=== PATIENT | male | born 1955 | race Caucasian/White ===

== ENCOUNTER 2025-05-10 13:47 | Inpatient (IN) | payer MEDICARE, BC, SELFPAY ==
[2025-05-10] VITALS (12 sets, daily range): BP systolic 122–205; BP diastolic 77–102
[2025-05-10 11:18] LABS: Hematocrit 48.5 % (39.0-52.0); Hemoglobin 15.6 g/dL (13.0-18.0); Mean Corp Hgb Conc. 32.2 g/dL (33.0-37.0); Mean Corpuscular Volume 90.0 fL (80.0-94.0); Nucleated Red Blood Cells % 0 % (-); Platelet Count 161 10^3/uL (130-400); Red Cell Dist. Width 13.2 % (11.5-14.5)
--- NOTE | 2025-05-10 11:21 | ED.GENMED ---
History of Present Illness
General
Chief Complaint: Dizziness
Source: patient and spouse
Exam Limitations: none
Time Seen by Provider: 05/10/25 10:46
History of Present Illness
History of Present Illness:
69-year-old male was in his normal state of health until early this morning. He woke up at baseline this morning. However at 530 this morning started having disequilibrium. Apparently could not get up from the floor in the bathroom. found
him on the floor awake at 10 AM. He also had slurred speech. Complaining of disequilibrium nausea. No unusual headache no other numbness tingling or weakness.
Past History
Past History
ED Past Medical History: CHF, HTN, Hypercholesterolemia, IDDM, Renal failure (does produce urine, states urine is clear, dialysis dependent), Other (Peripheral neuropathy) and Other (Cataracts, anemia)
ED Past Surgical History: Other (L arm surg, cataract surgery and left toe amputation)
Social History
Tobacco: Non-smoker
Alcohol: Occasional
Personal:
Living: with family
Employment: Employed
Family History
Family History: Diabetes and Hypertension
Review of Systems
Review of Systems
All Other Systems: Not applicable
Constitutional: Denies fever or chills
Respiratory: Reports no symptoms
Cardiac: Reports no symptoms
Phy Exam
Physical Exam
Physical Exam:
GENERAL: Eyes closed. Chronically ill-appearing. Normocephalic atraumatic.
EYE: Orbits normal. Extraocular muscles intact. No obvious nystagmus
NECK: Supple, no significant adenopathy.
ENT: Pharynx without erythema
CARDIAC: Regular rate and rhythm without any obvious murmurs.
LUNGS: Clear breath sounds,normal
ABDOMEN: Soft, without focal tenderness or distention
NEUROLOGICAL: Alert and oriented , cranial nerves II through XII intact. Speech normal. No obvious weakness.
SKIN: Warm and dry, no rash or lesion, no discoloration, skin intact.
MUSCULOSKELETAL: No edema,no deformity.Good color. Shunt left arm
PSYCH: Normal and appropriate interaction.
Course
Orders/Labs/Results
Orders:
Orders
05/10/25 10:43
Electrocardiogram (*1) Urgent
Reason for Study: Vertigo / Dizzy
05/10/25 10:44
EKG- Treatment ONCE
05/10/25 10:57
CT HEAD STROKE ALERT W/o Cont Urgent
Comment:
Reason For Exam: Sudden disequilibrium/slurred speech
05/10/25 11:00
Jackie Hugger [Jackie Hugger-Treatment] ONCE
Patient's goal temperature:: 97 F
Additional Instructions:: Temperature and skin assessment per unit protocol
05/10/25 11:05
Complete Blood Count/With Diff Urgent
Lactic Acid Q4H
Comment: CANCEL 2nd LACTIC ACID IF 1st LACTIC ACID IS LESS THAN 2
TSH Reflex To Free T4 Urgent
Blood Culture Q30M
LANI Source: Blood/Venous
Specimen Description:
Blood Culture Q30M
LANI Source: Blood/Venous
Specimen Description:
05/10/25 11:31
Comprehensive Metabolic Panel Urgent
Creatine Phosphokinase Urgent
Comment: ADD ON
Troponin I Urgent
05/10/25 11:56
Urinalysis Reflex To Culture Urgent
Date Specimen was Collected: 05/10/25
Time Specimen was Collected: 11:55
Urine Microscopic Reflex Cult Urgent
05/10/25 12:08
Bladder Scan- Treatment ONCE
05/10/25 12:30
Add On- LAB Urgent
Tests Added?: cpk
05/10/25 13:13
Admit/Transfer Patient As Directed
Co-Sign Provider:
Level of Care: Inpatient admission
Assign to:: IMU- Intermediate Care
Physician / Group: clare
Diagnosis: cva
Reason for Hospitalization: hypothermia
Expected length of stay greater than two midnights?: Yes
ELOS- Estimated Length of Stay in days: 2
I certify the patient meets the requirements for IP care: Yes
Code Status As Directed
Resuscitation Status: Full Code
PRN Pain Medication Management As Directed
May give lesser potent ordered pain med per pt: Yes
preference::
Protocol:: Medication orders for pain may be administered in a
manner that supports deferring to patient preference
when the pt is:
- Requesting an ordered lesser potent pain medication.
Least to most potent pain medications are defined
as: acetaminophen < NSAID < tramadol < opioids
(morphine, oxycodone, hydromorphone).
- Requesting a lesser dose of the same medication IF
ORDERED.
- Requesting a less intrusive route of administration
if both routes are prescribed by the provider (PO <
IV).
05/10/25 13:20
Ondansetron Injectable [Zofran] 4 mg IV NOW STA
CR Chest Portable - 1 View Urgent
Comment:
Reason For Exam: pneumonia
Reason Study Needs to be Portable: Unable to Transport
05/10/25 13:21
Ondansetron Injectable [Zofran] 4 mg .ROUTE .STK-MED ONE
05/10/25 Dinner
Regular
At Your Request: Full Participation
Does patient need a safe tray?: No
05/10/25 16:50
Dextrose 50%-Water [Dextrose 50% Syringe] 12.5 grams IV [id number] PRN
Glucagon [GlucaGen] 1 mg IM PRN PRN
Insulin Aspart Corrective Low [Novolog Flexpen-Low Resistance] See Protocol SC AC
05/10/25 16:50
Activity As Directed
Activity Level: As Tolerated
Bedside Glucose Monitoring As Directed
Frequency: AC&HS
Additional Instructions:: Change to q6h if pt on TPN, tube feeding or not eating
Pneumatic Compression Sleeves As Directed
Type: Knee high
Vital Signs As Directed
Frequency: Per unit guidelines
DX Deep Vein Thrombosis Video Routine
05/10/25 20:[address] [Myfortic Delayed Rel.] 540 mg PO BID
05/10/25 22:00
Pravastatin Sodium [Pravachol] 40 mg PO HS
Tacrolimus [Prograf] 0.5 mg PO HS
Tamsulosin [Flomax] 0.4 mg PO HS
05/11/25 06:00
Complete Blood Count/With Diff IN AM
Comprehensive Metabolic Panel IN AM
Glycohemoglobin (HgbA1c) IN AM
05/11/25 08:00
Tacrolimus [Prograf] 1 mg PO DAILY
05/13/25 08:00
Ergocalciferol [Drisdol (Vitamin D2)] 50,000 units PO SA
Abnormal Lab Results
05/10/25 05/10/25 05/10/25
11:05 11:31 11:56
WBC 12.1 H 10^3/uL
(4.8-10.8)
MCHC 32.2 L g/dL
(33.0-37.0)
MPV 10.9 H fL
(7.4-10.4)
Abs Immat Gran (auto) 0.1 H 10^3/uL
(0-0.05)
Absolute Neuts (auto) 10.8 H 10^3/uL
(1.4-6.5)
Absolute Lymphs (auto) 0.6 L 10^3/uL
(1.2-3.4)
Neutrophils % 89.2 H %
(42.2-75.2)
Lymphocytes % 5.0 L %
(20.5-51.1)
Glucose 244 H mg/dl
(70-99)
Urine Bacteria (Reflex) Few A
(Negative)
Urine Glucose 3+ A
(Negative)
Urine Albumin (Reflex) 2+ A
(Neg - Trace)
05/10/25 11:05
05/10/25 11:31
Vital Signs
Initial and Last Documented VS:
Initial Vital Signs
Pulse Ox
97
05/10/25 10:40
Last Documented Vital Signs
Temp Pulse Resp BP Pulse Ox
97.9 F 78 17 168/81 97
05/10/25 19:57 05/10/25 20:00 05/10/25 20:00 05/10/25 20:00 05/10/25 20:00
*Pulse Oximetry
SaO2: 96
Oxygen Mode of Delivery: Room air
Patient hypoxic: no
*EKG
Interpreted by ED Provider?: Yes
Interpretation: abnormal
Comparison EKG: changes noted
Heart Rate: 62
Rate: normal
Rhythm: sinus and PVC's
[place]: normal axis
Interval: normal interval
QRS Pattern: normal QRS
Ischemia: no ischemia
*Critical Care Note
Total Time (30-74mins, 75-104mins- exclusive of procedures): 45
Data Reviewed
Review of Other/Old Records Reveals: Labs, Records and Testing
Update Note
Update Note:
Patient has been rechecked multiple times.'s at times very agitated. Most recently he felt like he had to urinate. He did have 600 cc in. After urinating about 250 actually is much calmer. Mostly complaining of disequilibrium and nausea.
Clearly warrants admission. I do not think this is a primary cardiac issue or nephrology issue. Discussed with patient and transfer versus staying here. They are comfortable staying here. Nothing to support an acute kidney issue.
1325... Reevaluated by neurology. They feel he has a vestibular neuritis. Do not feel CTA is warranted. I did check with nephrology here to confirm if needed whether CT dye was okay which they said it was. We are also trying to contact his
drawer waxer at [facility].
1445.... Patient resting comfortably. Vital signs are stable. Blood pressure is improved. I did talk to patient's drawer waxer at [facility] who felt steroids were no problem at all.
ED Attending Note
-
Portions of this chart may have been created with voice recognition software.� Occasional wrong word or��sound alike� substitutions may have occurred due to the inherent limitations of voice recognition software.
Discharge Plan
Departure
Patient Disposition: Admit
Date of Disposition: 05/10/25
Time of Disposition: 12:30
Presentation/result/management discussed w/ accepting MD/DO: Neuro
Discharge Problem:
sudden dysequilibrium/vertigo, hypothermia, hx of renal transplant
Interventions
Interventions:
*Risk Screen - Suicide Last Done: 05/10/25 17:00
*General Assessment Last Done: 05/10/25 11:18
*Neglect/Abuse Screening Last Done: 05/10/25 11:18
*ED- Fall Risk Assessment Last Done: 05/10/25 11:18
*ED COVID-19 Vaccine History Last Done: 05/10/25 17:00
*Nursing Disposition Last Done: 05/10/25 16:57
ED- Neurological Assessment Last Done: 05/10/25 11:18
ED- Cardiac Assessment Last Done: 05/10/25 11:38
Discharge Date and Time
Discharge Date/Time: 05/10/25 16:58
[2025-05-10 12:08] LABS: ALT (SGPT) 19 U/L (0-50); AST (SGOT) 22 U/L (17-59); Albumin 4.2 g/dl (3.5-5.0); Alkaline Phosphatase 98 U/L (38-126); Blood Urea Nitrogen 20 mg/dl (9-20); Calcium 9.9 mg/dl (8.4-10.2); Carbon Dioxide 25 mmol/L (22-30); Chloride 105 mmol/L (98-107); Glucose 244 mg/dl (70-99); Potassium 3.9 mmol/L (3.5-5.1); Sodium 138 mmol/L (135-145); Total Protein 6.5 g/dl (6.3-8.2); eGFR > 60.00
[2025-05-10 12:08] LABS: Urine Character Clear (Clear)
[2025-05-10 12:13] LABS: Troponin I < 0.012 ng/ml
[2025-05-10 12:17] LABS: Urine Red Blood Cell 0-2 /HPF (0-2); Urine White Cell 0-2 /HPF (0-5)
--- NOTE | 2025-05-10 13:19 | HPS.HSE ---
Addendum entered and electronically signed by Tunde Garnett MD 05/10/25 15:05:
Neurology examined patient and notes vestibular neuritis of the left ear. Recommending prednisone 50 mg for 5 days. Will start as needed hydralazine for hypertensive urgency. CTA head and neck and MRI brain not necessary.
Patient continues to be hypothermic requiring Jackie hugger, although no clear explanation of this has been found so far.
Original Note:
Family Physician
-
Family Physician: Sami Birmingham
Chief Complaint
-
disequalibrium
History of Present Illness
69-year-old male past medical history of ESRD status post renal transplant,, type 2 diabetes, hypertension, hyperlipidemia, prostate cancer status post resection presenting with disequilibrium this morning at 5:30 AM. He woke up this morning
normally. At 530 started having disequilibrium with vertigo and could not get up from the floor in the bathroom. found him on the floor at 10 AM. He had slurred speech. He complained of nausea and some vomiting today. No headache or
numbness or tingling or focal weakness. No abdominal pain or cough or upper respiratory symptoms or urinary symptoms. He did not have any facial droop or focal neurological deficits or numbness or tingling.
No prior history of CVA.
He does not smoke or drink alcohol.
Medical History
Past Medical History
Past Medical History: Reports Other (ESRD status post renal transplant,, type 2 diabetes, hypertension, hyperlipidemia, prostate cancer status post resection)
Past Surgical History: Reports None
Social History
Tobacco: Non-smoker
Alcohol: None
Drug: None
Family History
Family History: Not pertinent
Allergies / Home Medications
Allergies reflects when Allergies were last updated in [facility].
Home Medications with original date entered in [facility]
Allergy/Medication List:
Allergies
Allergy/AdvReac Type Severity Reaction Status Date / Time
Penicillins Allergy Unknown Verified 05/10/25 11:26
Home Medications
ergocalciferol (vitamin D2) 1,250 mcg (50,000 unit) capsule 1,250 mcg PO SA Supplement 05/10/25
insulin aspart U-100 100 unit/mL (3 mL) subcutaneous pen (Novolog FlexPen U-100 Insulin aspart) 2 - 6 sliding scale dose SC DIRECTED Diabetes 05/10/25
insulin degludec 100 unit/mL (3 mL) subcutaneous pen (Tresiba FlexTouch U-100 insulin) 14 unit SC HS Diabetes 05/10/25
mycophenolate sodium 180 mg tablet,delayed release 540 mg PO BID Transplant 05/10/25
pravastatin 40 mg tablet 40 mg PO HS High Cholesterol 05/10/25
prednisone 5 mg tablet 5 mg PO DAILY Transplant 05/10/25
tacrolimus 0.5 mg capsule, immediate-release 0.5 mg PO HS 05/10/25
tacrolimus 0.5 mg capsule, immediate-release 1 mg PO DAILY Transplant 05/10/25
tamsulosin 0.4 mg capsule 0.4 mg PO HS Urinary Issue 05/10/25
Review of Systems
-
History Source: Patient
A 12 point ROS was completed and negative except as noted: Yes
Constitutional: Reports No Symptoms
EENT: Reports No Symptoms
Respiratory: Reports No Symptoms
Cardiac: Reports No Symptoms
Abdomen/GI: Reports No Symptoms
: Reports No Symptoms
Musculoskeletal: Reports No Symptoms
Skin: Reports No Symptoms
Neurological: Reports No Symptoms
Endocrine: Reports No Symptoms
Hematologic/Lymphatic: Reports No Symptoms
Psych: Reports No Symptoms
Physical Exam
Vital Signs
Vital Signs
Temp Pulse Resp BP Pulse Ox
94.9 F L 63 20 181/93 96
05/10/25 12:23 05/10/25 11:30 05/10/25 11:30 05/10/25 11:23 05/10/25 11:38
Physical Exam
General: Well Developed, Well Nourished and No Apparent Distress
HEENT: NormoCephalic, Moist mucous membranes and Atraumatic
Respiratory: Clear
Cardiac: S1/S2 and Regular Rhythm; No Murmur or Rub
GI: Soft, Non Tender, Non Distended and Normal Bowel Sounds; No Organomegaly
Rectal: Deferred by Provider
Musculoskeletal: No Clubbing, No Cyanosis and No Edema
Skin: No Rash
Neuro: Nonfocal/grossly intact
Laboratory Results
-
05/10/25 11:05
05/10/25 11:31
Laboratory Results
Lactic Acid 1.0 mmol/L (0.7-2.0) 05/10/25 11:05
Total Bilirubin 1.1 mg/dl (0.2-1.3) 05/10/25 11:31
AST 22 U/L (17-59) 05/10/25 11:31
ALT 19 U/L (0-50) 05/10/25 11:31
Alkaline Phosphatase 98 U/L (38-126) 05/10/25 11:31
Troponin I < 0.012 ng/ml 05/10/25 11:31
Data Reviewed
-
Lab Data: Labs Reviewed by me
Old Records: Reviewed
Impression/Plan
-
IMPRESSION:
PLAN:
# Acute disequilibrium concerning for brainstem process/CVA also causing hypothermia
- CT head shows no acute abnormality
- Check MRI brain
- Neurology consulted
# Hypertensive urgency
-Permissive hypertension for now
- As needed hydralazine for blood pressure greater than 220
# Hypothermia unclear etiology possibly brainstem process also causing disequilibrium
-Leukocytosis on labs
- TSH of 1.16
- Urinalysis unremarkable
- Check chest x-ray
- Blood cultures pending
- No clear signs of infection, hold off antibiotics
- Doubt adrenal insufficiency as hypertensive
ESRD s/p renal transplant
-Renal function normal however cautious to perform CTA given renal transplant
- Continue mycophenolate, tacrolimus, prednisone
Type 2 diabetes
- Continue Tresiba 14 units
- Insulin sliding scale
Essential hypertension
Hyperlipidemia
- Continue statin
Prostate cancer s/p resection
- Continue tamsulosin
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
Full code
DVT prophylaxis�SCDs
Regular diet
[2025-05-10] MEDS: ZOFRAN 4 MG IV ×2 (13:22→20:28)
[2025-05-10 17:33] LABS: Glucose - Point of Care 211 mg/dl (70-99)
[2025-05-10] MEDS: APRESOLINE 5 MG IV (17:46)
[2025-05-10] MEDS: DELTASONE 50 MG PO (17:46)
[2025-05-10] MEDS: NOVOLOG FLEXPEN-LOW RESISTANCE 2 UNITS SC (17:47)
[2025-05-10] MEDS: MYFORTIC DELAYED REL. 540 MG PO (20:28)
--- NOTE | 2025-05-10 21:13 | CON.NEURO ---
Neuro Assessment/Plan
Assessment
acute vestibular neuritis left side. slow drift to the left representing gain of function, and the right nystagmus representing a cortical correction the brain responding appropriately
no loss of function to suggest stroke
no further imaging required
prednisone 50 mg x5 days recommended
would admit for PT eval and observe if anything comes of his hypothermia
Consultation
Order
Date of Consultation: 05/10/25
Requesting Provider: Benjamín Marcus
Reason for Consult: stroke alert
Subjective/Objective
Subjective Data
Date of Service: May 10, 2025
seen during stroke alert this morning, late note.
69-year-old male was in his normal state of health until early this morning. He woke up at baseline this morning. However at 530 this morning started having disequilibrium. Apparently could not get up from the floor in the bathroom. found
him on the floor awake at 10 AM. He also had slurred speech. Complaining of disequilibrium nausea. No unusual headache no other numbness tingling or weakness.
Objective Data
Vital Signs
Temp Pulse Resp BP Pulse Ox
36.6 C 78 17 168/81 97
05/10/25 19:57 05/10/25 20:00 05/10/25 20:00 05/10/25 20:00 05/10/25 21:07
Lab Results
05/10/25 11:05
05/10/25 11:31
Sodium 138 mmol/L (135-145) 05/10/25 11:31
Potassium 3.9 mmol/L (3.5-5.1) 05/10/25 11:31
BUN 20 mg/dl (9-20) 05/10/25 11:31
Glucose 244 mg/dl (70-99) H 05/10/25 11:31
Calcium 9.9 mg/dl (8.4-10.2) 05/10/25 11:31
Patient Allergies
Penicillins Allergy (Verified 05/10/25 11:26)
Unknown
CVA Assessment
Onset of Stroke Symptoms
Date of onset of symptoms: 05/10/25
Time of onset of symptoms: 05:30
NIH Stroke Score
Level of Consciousness: 0 - Alert
LOC Questions: 0-Answers both correctly
LOC Commands: 0-Performs both correctly
Best Horizontal Gaze: 0-Normal
Visual Joyner: 0=Normal, no visual loss
Facial Palsy: 0=Normal, symmetrical
Motor - Right Arm: 0=No drift 10 seconds
Motor - Left Arm: 0=No drift 10 seconds
Motor - Right Le-No drift 5 seconds
Motor - Left Le-No drift 5 seconds
Limb Ataxia: 0-Absent
Sensation: 0-Normal
Best Language: 0-No aphasia
Dysarthria: 0-Normal
Extinction and Inattention: 0-No abnormality
NIH Total Score:: 0
Tenecteplase Contraindications
Reasons for NON-Tx with Thrombolytics ABSOLUTE Exclusions: Time-out of window
Physical Exam
-
NIHSS of 0
constant right beating nystagmus
Medications
-
Active Medications
Generic Name Dose Route Start Last Admin
Trade Name Freq PRN Reason Stop Dose Admin
Dextrose 12.5 grams 05/10/25 16:50
Dextrose 50% (0.5 Grams/Ml) 50 Ml Syringe IV 06/07/25 16:49
[id number] PRN
hypoglycemia
Protocol
Ergocalciferol 50,000 units 05/13/25 08:00
Ergocalciferol (Vitamin D-2) 67856 Units Capsule PO 06/10/25 07:59
SA DIDI
Glucagon 1 mg 05/10/25 16:50
Glucagon 1 Mg Vial IM 06/07/25 16:49
PRN PRN
hypoglycemia
Protocol
Hydralazine HCl 5 mg 05/10/25 15:07 05/10/25 17:46
Hydralazine 20 Mg/Ml Vial IV 06/07/25 15:06 5 mg
Q6HPRN PRN Administration
SBP>170
Insulin Glargine 14 units/ 0.14 mls @ 0 mls/hr 05/10/25 22:00
Device SC 06/07/25 21:59
HS DIDI
As Directed
Insulin Aspart 0 units 05/10/25 16:50 05/10/25 17:47
Insulin Aspart Low Resistance 300 Units/3 Ml Pen.Injctr SC 06/07/25 16:49 2 units
AC DIDI Administration
Protocol
Mycophenolate Sodium 540 mg 05/10/25 20:00 05/10/25 20:28
Mycophenolic Acid [address] Tablet (Non Form) PO 540 mg
BID DIDI Administration
Pravastatin Sodium 40 mg 05/10/25 22:00
Pravastatin 40 Mg Tablet PO 06/07/25 21:59
HS DIDI
Prednisone 50 mg 05/10/25 16:00 05/10/25 17:46
Prednisone 50 Mg Tablet PO 05/14/25 08:01 50 mg
DAILY DIDI Administration
Sodium Chloride 0 flush 05/10/25 17:00
Sodium Chloride 0.9% (Flush) Syringe IV 06/07/25 16:59
PER PROTOCOL DIDI
Tacrolimus 1 mg 05/11/25 08:00
Tacrolimus 1 Mg Capsule PO 06/08/25 07:59
DAILY DIDI
Tacrolimus 0.5 mg 05/10/25 22:00
Tacrolimus 0.5 Mg Capsule PO 06/07/25 21:59
HS DIDI
Tamsulosin HCl 0.4 mg 05/10/25 22:00
Tamsulosin 0.4 Mg Capsule PO 06/07/25 21:59
HS DIDI
Home Medications
�Medication �Instructions �Recorded
ergocalciferol (vitamin D2) 1,250 1,250 mcg PO SA Supplement 05/10/25
mcg (50,000 unit) capsule
insulin aspart U-100 100 unit/mL 2 - 6 sliding scale dose SC 05/10/25
(3 mL) subcutaneous pen (Novolog DIRECTED Diabetes
FlexPen U-100 Insulin aspart)
insulin degludec 100 unit/mL (3 14 unit SC HS Diabetes 05/10/25
mL) subcutaneous pen (Tresiba
FlexTouch U-100 insulin)
mycophenolate sodium 180 mg 540 mg PO BID Transplant 05/10/25
tablet,delayed release
pravastatin 40 mg tablet 40 mg PO HS High Cholesterol 05/10/25
prednisone 5 mg tablet 5 mg PO DAILY Transplant 05/10/25
tacrolimus 0.5 mg capsule, 0.5 mg PO HS 05/10/25
immediate-release
tacrolimus 0.5 mg capsule, 1 mg PO DAILY Transplant 05/10/25
immediate-release
tamsulosin 0.4 mg capsule 0.4 mg PO HS Urinary Issue 05/10/25
[2025-05-10] MEDS: PRAVACHOL 40 MG PO (21:57)
[2025-05-10] MEDS: PROGRAF 0.5 MG PO (21:57)
[2025-05-10] MEDS: FLOMAX 0.4 MG PO (21:57)
[2025-05-10] MEDS: LANTUS 0.14 UNITS SC (21:58)
[2025-05-10 22:11] LABS: Glucose - Point of Care 210 mg/dl (70-99)
--- NOTE | 2025-05-10 22:13 | PTCARENOTE ---
Caring for pt overnight. 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 Continues to feel dizziness.
Pt complaining of R arm weakness/ataxia. Completed NIH with a score of 2. Pt having slight dysarthria & right arm ataxia. R hand grasp is weaker than L. Pt states it feels like something is wrong with his R arm and these symptoms just started when
all his other symptoms arised. Pt feels he cannot hold things with his R hand and its unsteady. PERRLA. BPs running high, will monitor, prn hydralazine. NSR, on RA. Will continue to monitor.
[2025-05-11] VITALS (12 sets, daily range): BP systolic 106–174; BP diastolic 67–89
[2025-05-11] MEDS: ZOFRAN 4 MG IV (04:12)
[2025-05-11 04:27] LABS: Hematocrit 49.6 % (39.0-52.0); Hemoglobin 16.6 g/dL (13.0-18.0); Mean Corp Hgb Conc. 33.5 g/dL (33.0-37.0); Mean Corpuscular Volume 88.3 fL (80.0-94.0); Nucleated Red Blood Cells % 0 % (-); Platelet Count 202 10^3/uL (130-400); Red Cell Dist. Width 13.2 % (11.5-14.5)
[2025-05-11 04:42] LABS: ALT (SGPT) 20 U/L (0-50); AST (SGOT) 20 U/L (17-59); Albumin 4.1 g/dl (3.5-5.0); Alkaline Phosphatase 90 U/L (38-126); Blood Urea Nitrogen 25 mg/dl (9-20); Calcium 10.3 mg/dl (8.4-10.2); Carbon Dioxide 24 mmol/L (22-30); Chloride 106 mmol/L (98-107); Glucose 226 mg/dl (70-99); Potassium 4.5 mmol/L (3.5-5.1); Sodium 138 mmol/L (135-145); Total Protein 6.6 g/dl (6.3-8.2); eGFR > 60.00
[2025-05-11] MEDS: MYFORTIC DELAYED REL. 540 MG PO ×2 (07:05→20:29)
[2025-05-11] MEDS: DELTASONE 50 MG PO (07:06)
[2025-05-11] MEDS: PROGRAF 1 MG PO (07:06)
--- NOTE | 2025-05-11 07:19 | W.PN.HOSP.TC ---
Today's Communication/Plan
-
See plan
Assessment / Plan
Assessment / Plan
Physical Exam
General: Well Developed, Well Nourished and No Apparent Distress
HEENT: NormoCephalic, Moist mucous membranes and Atraumatic
Respiratory: Clear
Cardiac: S1/S2 and Regular Rhythm; No Murmur or Rub
GI: Soft, Non Tender, Non Distended and Normal Bowel Sounds; No Organomegaly
Rectal: Deferred by Provider
Musculoskeletal: No Clubbing, No Cyanosis and No Edema
Skin: No Rash
Neuro: Nonfocal/grossly intact
Assessment/Plan
69-year-old male past medical history of ESRD status post renal transplant, type 2 diabetes mellitus, hypertension, hyperlipidemia, prostate cancer status post resection presented with disequilibrium on 05/10/25 morning. He woke up normally but
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 found patient on the floor later in the morning; he had slurred speech. He complained of nausea and some vomiting
on 05/10/25. No headache or numbness or tingling or focal weakness. No abdominal pain or cough or upper respiratory symptoms or urinary symptoms. He did not have any facial droop or focal neurological deficits or numbness or tingling. No prior
history of CVA. He does not smoke or drink alcohol.
CTA head and neck and MRI brain not necessary.
Patient continues to be hypothermic requiring Jackie hugger, although no clear explanation of this has been found so far.
# Acute disequilibrium, speech difficulty concerning for brainstem process/CVA -- suspected vestibular neuritis
- CT head shows no acute abnormality
- Neurology consulted -- they mentioned neuroimaging is unnecessary
- Neurology examined patient and notes vestibular neuritis of the left ear. Recommending prednisone 50 mg for 5 days.
#Hematemesis reported overnight 05/10/25 to 05/11/25
-Start Protonix IV 40 mg BID
-IV fluids
-Consult GI
# Hypertensive urgency - RESOLVED
- Permissive hypertension for now
- As needed hydralazine
# Hypothermia unclear etiology
- Leukocytosis on labs
- No hypoglycemia
- TSH of 1.16
- Urinalysis unremarkable
- Chest x-ray with no acute changes
- Blood cultures with no growth to date
- No clear signs of infection, hold off antibiotics
- Doubt adrenal insufficiency as patient was hypertensive; and sodium and potassium are normal
#History of ESRD s/p renal transplant (per patient, he no longer gets dialysis)
- Renal function normal however cautious to perform CTA given renal transplant
- Continue mycophenolate, tacrolimus, prednisone
Type 2 diabetes mellitus
- Continue Tresiba 14 units
- Insulin sliding scale
Essential hypertension
Hyperlipidemia
- Continue statin
Prostate cancer s/p resection
- Continue tamsulosin
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
Full code
DVT prophylaxis�SCDs
Regular diet
Anticipated Discharge: 24 - 48 hours
Subjective/Interval History
-
Date of Service: May 11, 2025
Patient was seen and examined. He had nausea and occasional vomiting.
Objective Data
-
Labs:
Laboratory Results
05/11/25
04:02
WBC 10.9 H
Hgb 16.6
Hct 49.6
Plt Count 202 D
Sodium 138
Potassium 4.5
Chloride 106
Carbon Dioxide 24
BUN 25 H
Creatinine 1.1
Glucose 226 H
Calcium 10.3 H
Total Bilirubin 1.4 H
AST 20
ALT 20
Alkaline Phosphatase 90
Vital Signs:
Vital Signs
Temp Pulse Resp BP Pulse Ox
97.7 F 79 18 106/67 96
05/11/25 04:00 05/11/25 06:00 05/11/25 06:00 05/11/25 06:00 05/11/25 06:00
I&O
05/10/25 05/11/25 05/12/25
06:59 06:59 06:59
Output Total 650 / 650
Balance -650 / -650
[2025-05-11] MEDS: NSS 1000 IV (07:49)
[2025-05-11 07:55] LABS: Glycohemoglobin (HgbA1c) 8.0 % (4.0-5.6)
[2025-05-11] MEDS: NOVOLOG FLEXPEN-LOW RESISTANCE 2 UNITS SC (07:57)
[2025-05-11 08:08] LABS: Glucose - Point of Care 229 mg/dl (70-99)
--- NOTE | 2025-05-11 08:17 | PTCARENOTE ---
Patient received this am from solar field installation crew member RN. Patient AAOx3, + emesis-coffee grains black/brown, patient unable to take morning meds. Provider notified. IV fluids obtained. Protonix IV ordered. GI consult placed. Patient reports being on steroids
for 5+ years for kidney transplant. VS within normal limits. Patient bedrest at this time due to vestibular issues. Placed on clear liquid diet.
--- NOTE | 2025-05-11 09:32 | CON.GI ---
Consultation
-
Date/Time Consultation Requested: 05/11/25
Date/Time Consultation Performed: 05/11/25
Reason for Consultation: Coffee-ground emesis
Medical History
Chief Complaint / HPI
Chief Complaint: coffee-ground emesis
History of Present Illness:
Benjamín is a 69-year-old male with past medical history of ESRD status post renal transplant performed at [facility], type 2 diabetes, hypertension, hyperlipidemia, prostate cancer status post resection who presented to [facility]
yesterday morning for feeling of disequilibrium upon waking up, he was subsequently found on the floor by his and had slurred speech with complaints of nausea and vomiting. He was admitted as a stroke alert, seen by neurology who felt that his
symptoms were more consistent with acute vestibular neuritis of his left side, NIH stroke scale of 0. CT head negative, MRI pending. Additionally, was hypertensive and hypothermic, lowest temperature recorded at 93.6 which improved with Jackie
hugger. Blood cultures pending. He was now maintaining normal temperatures. He was started on prednisone 50 mg for 5 days. GI was consulted for multiple episodes of bloody emesis. It was described by both nurse and patient as black and brown
emesis, appearance of coffee grounds without any bright red blood or blood clots present. Patient was started on PPI IV every 12 hours. He denies any recent NSAID use. He did receive his first dose of prednisone yesterday. No prior EGD. Denies
family history of GI malignancy.
Past Medical History
Past Medical History: HTN, Hypercholesterolemia, NIDDM and Renal Failure
Past Surgical History: Other (Renal transplant)
Social History
Tobacco: Non-Smoker
Alcohol: None
Drug: None
Family History
Family History: Reviewed & Not Pertinent
Allergies / Home Medications
Allergy/AdvReac Type Severity Reaction Status Date / Time
Penicillins Allergy Unknown Verified 05/10/25 11:26
�Medication �Instructions �Recorded
ergocalciferol (vitamin D2) 1,250 1,250 mcg PO SA Supplement 05/10/25
mcg (50,000 unit) capsule
insulin aspart U-100 100 unit/mL 2 - 6 sliding scale dose SC 05/10/25
(3 mL) subcutaneous pen (Novolog DIRECTED Diabetes
FlexPen U-100 Insulin aspart)
insulin degludec 100 unit/mL (3 14 unit SC HS Diabetes 05/10/25
mL) subcutaneous pen (Tresiba
FlexTouch U-100 insulin)
mycophenolate sodium 180 mg 540 mg PO BID Transplant 05/10/25
tablet,delayed release
pravastatin 40 mg tablet 40 mg PO HS High Cholesterol 05/10/25
prednisone 5 mg tablet 5 mg PO DAILY Transplant 05/10/25
tacrolimus 0.5 mg capsule, 0.5 mg PO HS 05/10/25
immediate-release
tacrolimus 0.5 mg capsule, 1 mg PO DAILY Transplant 05/10/25
immediate-release
tamsulosin 0.4 mg capsule 0.4 mg PO HS Urinary Issue 05/10/25
Review of Systems
-
All other systems: A 12 pt ROS was Negative except as stated above in HPI
Vital Signs
Temp Pulse Resp BP Pulse Ox
98.1 F 79 18 106/67 96
05/11/25 07:05 05/11/25 06:00 05/11/25 06:00 05/11/25 06:00 05/11/25 06:00
Physical Exam
Exam
GENERAL: In no acute distress, appears comfortable
ABDOMEN: +BS; soft, non-tender and non-distended; no rebound or guarding
RECTAL: +light brown stool
Results
WBC 10.9 10^3/uL (4.8-10.8) H 05/11/25 04:02
Hgb 16.6 g/dL (13.0-18.0) 05/11/25 04:02
Hct 49.6 % (39.0-52.0) 05/11/25 04:02
MCV 88.3 fL (80.0-94.0) 05/11/25 04:02
Plt Count 202 10^3/uL (130-400) D 05/11/25 04:02
Absolute Neuts (auto) 10.0 10^3/uL (1.4-6.5) H 05/11/25 04:02
Sodium 138 mmol/L (135-145) 05/11/25 04:02
Potassium 4.5 mmol/L (3.5-5.1) 05/11/25 04:02
Chloride 106 mmol/L (98-107) 05/11/25 04:02
Carbon Dioxide 24 mmol/L (22-30) 05/11/25 04:02
BUN 25 mg/dl (9-20) H 05/11/25 04:02
Creatinine 1.1 mg/dL (0.7-1.3) 05/11/25 04:02
Calcium 10.3 mg/dl (8.4-10.2) H 05/11/25 04:02
Total Bilirubin 1.4 mg/dl (0.2-1.3) H 05/11/25 04:02
AST 20 U/L (17-59) 05/11/25 04:02
ALT 20 U/L (0-50) 05/11/25 04:02
Alkaline Phosphatase 90 U/L (38-126) 05/11/25 04:02
Diagnostic Image Results:
Prior GI Procedures:
EGD:
Colonoscopy:
Assessment / Plan
-
69 y.o. male with pmhx ESRD s/p transplant on immunosuppression, HTN, HLD, DM2 admitted for rule out stroke found to be hypertensive and hypothermic, given a diagnosis of acute vestibular neuritis and started on prednisone w/ course c/b
coffee-ground emesis.
#Coffee-ground emesis w/ c/f UGIB-- ddx erosive esophagitis/gastritis vs. PUD vs. vicki ly tear vs. ischemic vs. AVM vs. diuelafoy vs. less likely variceal or malignancy
-unclear if actually had coffee grounds or if possibly medication or old food in emesis, in the setting of nausea and retching
-light brown stool on rectal; hemoglobin 16.6 this morning, likely hemoconcentrated, BUN increased from 20--> 25, suspect some dehydration
-Recommend IV PPI q12 hr
-NPO, antiemetics; okay to advance to CLD if patient able to tolerate
-2 large bore peripheral gauge IVs
-repeat early afternoon CMP and CBC
-given concern for possible stroke, would not recommend pursuing endoscopic procedure unless absolutely necessary, which I explained to the patient and he expressed understanding
Data Reviewed
-
Old Records: Reviewed
-
-
Thank you for consultation and allowing me to participate in the patient's care. Please call the english as a second language instructor GI physician during the after hours with any questions or concerns.
[2025-05-11] MEDS: NSS (PRESERVATIVE FREE) 10 ML IV ×2 (10:32→20:28)
[2025-05-11] MEDS: PROTONIX IV 40 MG IV ×2 (10:32→20:28)
[2025-05-11] MEDS: NOVOLOG FLEXPEN-LOW RESISTANCE 1 UNITS SC ×2 (12:53→17:08)
[2025-05-11] MEDS: NOVOLOG FLEXPEN 2 UNITS SC ×2 (12:53→17:09)
[2025-05-11 13:01] LABS: Hematocrit 48.1 % (39.0-52.0); Hemoglobin 15.8 g/dL (13.0-18.0); Mean Corp Hgb Conc. 32.8 g/dL (33.0-37.0); Mean Corpuscular Volume 88.7 fL (80.0-94.0); Nucleated Red Blood Cells % 0 % (-); Platelet Count 198 10^3/uL (130-400); Red Cell Dist. Width 13.5 % (11.5-14.5)
[2025-05-11 13:08] LABS: Glucose - Point of Care 175 mg/dl (70-99)
[2025-05-11 13:32] LABS: ALT (SGPT) 17 U/L (0-50); Albumin 3.6 g/dl (3.5-5.0); Alkaline Phosphatase 76 U/L (38-126); Blood Urea Nitrogen 33 mg/dl (9-20); Calcium 9.8 mg/dl (8.4-10.2); Carbon Dioxide 25 mmol/L (22-30); Chloride 106 mmol/L (98-107); Glucose 199 mg/dl (70-99); Potassium 4.5 mmol/L (3.5-5.1); Sodium 137 mmol/L (135-145); Total Protein 5.9 g/dl (6.3-8.2); eGFR 55.09
[2025-05-11 13:44] LABS: AST (SGOT) 18 U/L (17-59)
--- NOTE | 2025-05-11 16:05 | CM ---
Patient with Hx ESRD s/p renal transplant with Dx Acute disequilibrium with concern for stroke, coffee ground emesis, Hypertensive urgency. Room air. Receiving SC Insulin, IVF. Per nurse; A/O, weak right hand grasp, assist of 1/bedrest.
Met with patient who resides with his in a 1 story houe with 3-4 outside steps.
The patient was independent in ADLs and ambulation.
He was retired, active and driving.
The patient reports weakness & a movement issue with right arm, saying his right arm will not move where he wants it to. Patient is unsure if he can walk at present as he has not been allowed OOB ---> message to Dr Lau with request for PT/OT
Evals.
DME - [facility]
VN - prior [facility]
SNF - none
PCP - Sami [place]
Pharmacy - [facility] [address], [place]
Plan follow up after seen by PT/OT.
[2025-05-11 17:22] LABS: Glucose - Point of Care 189 mg/dl (70-99)
[2025-05-11] MEDS: HEPARIN 5000 UNITS SC (20:28)
[2025-05-11] MEDS: PRAVACHOL 40 MG PO (22:10)
[2025-05-11] MEDS: PROGRAF 0.5 MG PO (22:10)
[2025-05-11] MEDS: FLOMAX 0.4 MG PO (22:10)
[2025-05-11] MEDS: LANTUS 0.14 UNITS SC (22:10)
[2025-05-11 22:15] LABS: Glucose - Point of Care 263 mg/dl (70-99)
[2025-05-12] VITALS (17 sets, daily range): BP systolic 84–158; BP diastolic 55–93; PULSE 81
[2025-05-12 05:37] LABS: Hematocrit 50.4 % (39.0-52.0); Hemoglobin 16.2 g/dL (13.0-18.0); Mean Corp Hgb Conc. 32.1 g/dL (33.0-37.0); Mean Corpuscular Volume 89.5 fL (80.0-94.0); Platelet Count 193 10^3/uL (130-400); Red Cell Dist. Width 13.3 % (11.5-14.5)
[2025-05-12 06:01] LABS: Blood Urea Nitrogen 33 mg/dl (9-20); Calcium 9.4 mg/dl (8.4-10.2); Carbon Dioxide 24 mmol/L (22-30); Chloride 106 mmol/L (98-107); Glucose 212 mg/dl (70-99); Magnesium 2.0 mg/dl (1.6-2.3); Potassium 4.8 mmol/L (3.5-5.1); Sodium 135 mmol/L (135-145); eGFR > 60.00
[2025-05-12 07:18] LABS: Glucose - Point of Care 171 mg/dl (70-99)
--- NOTE | 2025-05-12 08:14 | W.PN.GI.CBS2 ---
Today's Communication / Plan
-
Transition to PO PPI. Advance to full diet. GI will sign off, f/u as outpatient.
Assessment / Plan
-
69 y.o. male with pmhx ESRD s/p transplant on immunosuppression, HTN, HLD, DM2 admitted for rule out stroke found to be hypertensive and hypothermic, given a diagnosis of acute vestibular neuritis and started on prednisone w/ course c/b
coffee-ground emesis.
#Coffee-ground emesis w/ c/f UGIB-- ddx erosive esophagitis/gastritis vs. PUD vs. vicki ly tear vs. ischemic vs. AVM vs. diuelafoy vs. less likely variceal or malignancy
-unclear if actually had coffee grounds or if possibly medication or old food in emesis, in the setting of nausea and retching
-light brown stool on recta
-hemoglobin remains stable
-currently on PPI IV Q12 hr --> transition to pantoprazole 40mg once daily x4 weeks
-okay to advance to full diet
-outpatient follow-up with GI, can discuss outpatient EGD at that time, no signs of active or event recent bleeding
GI will sign off, please call with questions.
Subjective
Subjective
Date of Service: May 12, 2025
Patient seen in follow-up. No overnight events. Hemoglobin stable. No nausea or vomiting in last 24 hours, reports brown stool yesterday. Tolerating CLD.
Objective
Data Reviewed
Laboratory Data:
Laboratory Results
05/12/25 05:05
05/12/25 05:05
Laboratory Results
Magnesium 2.0 mg/dl (1.6-2.3) 05/12/25 05:05
Total Bilirubin 1.2 mg/dl (0.2-1.3) 05/11/25 12:45
AST 18 U/L (17-59) 05/11/25 12:45
ALT 17 U/L (0-50) 05/11/25 12:45
Alkaline Phosphatase 76 U/L (38-126) 05/11/25 12:45
Vital Signs and I&O:
Vital Signs
Temp Pulse Resp BP Pulse Ox
97.9 F 63 17 140/75 94
05/12/25 07:27 05/12/25 00:00 05/12/25 00:00 05/12/25 00:00 05/11/25 10:00
I&O
05/11/25 05/12/25 05/13/25
06:59 06:59 06:59
Output Total 650 / 650 750 / 750
Balance -650 / -650 -750 / -750
Physical Exam
Physical Exam
GENERAL: In no acute distress, appears comfortable
ABDOMEN: +BS; soft, non-tender and non-distended; no rebound or guarding
[2025-05-12] MEDS: PROGRAF 1 MG PO (08:33)
[2025-05-12] MEDS: DELTASONE 50 MG PO (08:33)
[2025-05-12] MEDS: MYFORTIC DELAYED REL. 540 MG PO ×2 (08:33→20:39)
[2025-05-12] MEDS: HEPARIN 5000 UNITS SC ×2 (08:34→20:39)
[2025-05-12] MEDS: NSS (PRESERVATIVE FREE) 10 ML IV (08:34)
[2025-05-12] MEDS: PROTONIX IV 40 MG IV (08:34)
[2025-05-12] MEDS: NOVOLOG FLEXPEN-LOW RESISTANCE 1 UNITS SC ×2 (08:35→12:17)
[2025-05-12] MEDS: NOVOLOG FLEXPEN 2 UNITS SC ×3 (08:36→17:09)
[2025-05-12 11:37] LABS: Glucose - Point of Care 188 mg/dl (70-99)
--- NOTE | 2025-05-12 16:09 | W.PN.HOSP.TC ---
Today's Communication/Plan
-
PT/OT
Advance Diet
Transition to PO PPI
Transfer to telemetry
Assessment / Plan
Assessment / Plan
Physical Exam
General: Well Developed, Well Nourished and No Apparent Distress
HEENT: NormoCephalic, Moist mucous membranes and Atraumatic
Respiratory: Clear to Auscultation Bilaterally
Cardiac: S1/S2 and Regular Rhythm
GI: Soft, Non Tender, Non Distended and Normal Bowel Sounds
Musculoskeletal: No Cyanosis and No Edema
Skin: Warm. Dry.
Neuro: Nonfocal/grossly intact
Assessment/Plan
69-year-old male past medical history of ESRD status post renal transplant, type 2 diabetes mellitus, hypertension, hyperlipidemia, prostate cancer status post resection presented with disequilibrium on 05/10/25 morning. He woke up normally but
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 found patient on the floor later in the morning; he had slurred speech. He complained of nausea and some vomiting
on 05/10/25. No headache or numbness or tingling or focal weakness. No abdominal pain or cough or upper respiratory symptoms or urinary symptoms. He did not have any facial droop or focal neurological deficits or numbness or tingling. No prior
history of CVA. He does not smoke or drink alcohol.
CTA head and neck and MRI brain not necessary.
Patient continued to be hypothermic requiring Jackie hugger, although no clear explanation of this has been found so far.
# Acute disequilibrium, speech difficulty concerning for brainstem process/CVA -- suspected vestibular neuritis
- CT head shows no acute abnormality
- Neurology consulted -- they mentioned neuroimaging is unnecessary
- Neurology examined patient and notes vestibular neuritis of the left ear. Recommending prednisone 50 mg for 5 days.
#Hematemesis reported overnight 05/10/25 to 05/11/25
-Protonix IV 40 mg BID transitioned to PO Protonix
-IV fluids
-Appreciate GI
# Hypertensive urgency - RESOLVED
- RESOLVED
- As needed hydralazine
# Hypothermia unclear etiology
- Leukocytosis on labs
- No hypoglycemia
- TSH of 1.16
- Urinalysis unremarkable
- Chest x-ray with no acute changes
- Blood cultures with no growth to date
- No clear signs of infection, hold off antibiotics
- Doubt adrenal insufficiency as patient was hypertensive; and sodium and potassium are normal
#History of ESRD s/p renal transplant
- Renal function normal however cautious to perform CTA given renal transplant
- Continue mycophenolate, tacrolimus, prednisone
Type 2 diabetes mellitus
- Continue Tresiba 14 units
- Insulin sliding scale
Essential hypertension
Hyperlipidemia
- Continue statin
Prostate cancer s/p resection
- Continue tamsulosin
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
Full code
DVT prophylaxis�SCDs. Heparin subq.
Regular diet
Anticipated Discharge: 24 - 48 hours
Subjective/Interval History
-
Date of Service: May 12, 2025
Patient was seen and examined. He reported that he still feels dizzy. His nausea and vomiting have resolved.
Objective Data
-
Labs:
Laboratory Results
05/12/25
05:05
WBC 12.1 H
Hgb 16.2
Hct 50.4
Plt Count 193
Sodium 135
Potassium 4.8
Chloride 106
Carbon Dioxide 24
BUN 33 H
Creatinine 1.3
Glucose 212 H
Calcium 9.4
Vital Signs:
Vital Signs
Temp Pulse Resp BP Pulse Ox
98.0 F 69 15 138/84 96
05/12/25 15:46 05/12/25 10:00 05/12/25 10:00 05/12/25 08:00 05/12/25 08:48
I&O
05/11/25 05/12/25 05/13/25
06:59 06:59 06:59
Output Total 650 / 650 750 / 750
Balance -650 / -650 -750 / -750
[2025-05-12 16:36] LABS: Glucose - Point of Care 209 mg/dl (70-99)
[2025-05-12] MEDS: NOVOLOG FLEXPEN-LOW RESISTANCE 2 UNITS SC (17:09)
--- NOTE | 2025-05-12 18:31 | PTCARENOTE ---
OOB to chair with PT and myself/ BP now running 84/55 94/65- asymptomatic. All day his symptoms have been complaints of blurry vision right eye when he looks right, right arm is 'not right' stuperous. Appetite ok, voids in urinal. Will monitor bp
. Relayed to Dr. Shah.
[2025-05-12] MEDS: PRAVACHOL 40 MG PO (20:39)
[2025-05-12] MEDS: FLOMAX 0.4 MG PO (20:39)
[2025-05-12] MEDS: PROGRAF 0.5 MG PO (20:40)
[2025-05-12] MEDS: LANTUS 0.14 UNITS SC (21:00)
[2025-05-12 21:10] LABS: Glucose - Point of Care 357 mg/dl (70-99)
[2025-05-12] MEDS: NOVOLOG FLEXPEN 5 UNITS SC (21:59)
[2025-05-12 23:38] LABS: Glucose - Point of Care 271 mg/dl (70-99)
[2025-05-13] VITALS (9 sets, daily range): BP systolic 119–176; BP diastolic 66–94; PULSE 79; O2SAT 93
[2025-05-13 03:23] LABS: Glucose - Point of Care 139 mg/dl (70-99)
[2025-05-13 07:40] LABS: Glucose - Point of Care 134 mg/dl (70-99)
--- NOTE | 2025-05-13 08:07 | W.PN.HOSP.TC ---
Today's Communication/Plan
-
See plan
Assessment / Plan
Assessment / Plan
Physical Exam
General: Well Developed, Well Nourished and No Apparent Distress
HEENT: NormoCephalic, Moist mucous membranes and Atraumatic
Respiratory: Clear to Auscultation Bilaterally
Cardiac: S1/S2 and Regular Rhythm
GI: Soft, Non Tender, Non Distended and Normal Bowel Sounds
Musculoskeletal: No Cyanosis and No Edema
Skin: Warm. Dry.
Neuro: AAOx3. Right sided ataxia, impaired finger to nose test and impaired heel to king test
Assessment/Plan
69-year-old male past medical history of ESRD status post renal transplant, type 2 diabetes mellitus, hypertension, hyperlipidemia, prostate cancer status post resection presented with disequilibrium on 05/10/25 morning. He woke up normally but
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 found patient on the floor later in the morning; he had slurred speech. He complained of nausea and some vomiting
on 05/10/25. No headache or numbness or tingling or focal weakness. No abdominal pain or cough or upper respiratory symptoms or urinary symptoms. He did not have any facial droop or focal neurological deficits or numbness or tingling. No prior
history of CVA. He does not smoke or drink alcohol.
CTA head and neck and MRI brain not necessary.
Patient continued to be hypothermic requiring Jackie hugger, although no clear explanation of this has been found so far.
#Acute disequilibrium, speech difficulty concerning for brainstem process/CVA -- suspected vestibular neuritis
#Right Sided Ataxia
- CT head shows no acute abnormality
- Neurology consulted -- they mentioned neuroimaging is unnecessary
- Neurology recommended prednisone for vestibular neuritis
-Check MRI Brain with and without contrast
#Hematemesis reported overnight 05/10/25 to 05/11/25
-Protonix IV 40 mg BID transitioned to PO Protonix
-IV fluids
-Appreciate GI
# Hypertensive urgency - RESOLVED
- RESOLVED
- As needed hydralazine
# Hypothermia unclear etiology
- Leukocytosis on labs
- No hypoglycemia
- TSH of 1.16
- Urinalysis unremarkable
- Chest x-ray with no acute changes
- Blood cultures with no growth to date
- No clear signs of infection, hold off antibiotics
- Doubt adrenal insufficiency as patient was hypertensive; and sodium and potassium are normal
#History of ESRD s/p renal transplant
- Renal function normal however cautious to perform CTA given renal transplant
- Continue mycophenolate, tacrolimus, prednisone
Type 2 diabetes mellitus
- Continue Tresiba 14 units
- Increase premeal Insulin from 2 units to 4 units
- Change to diabetic diet
- Insulin sliding scale
Essential hypertension
Hyperlipidemia
- Continue statin
Prostate cancer s/p resection
- Continue tamsulosin
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
Full code
DVT prophylaxis�SCDs. Heparin subq.
Regular diet
Anticipated Discharge: > 48 hours
Subjective/Interval History
-
Date of Service: May 13, 2025
Patient was seen and examined. He reported mild right sided headache and on and off pain with right eye movement. He said his right said has been feeling more off balance and he is not able to ambulate without falling.
Objective Data
-
Labs:
Laboratory Results
05/13/25
07:16
WBC Pending
Hgb Pending
Hct Pending
Plt Count Pending
Sodium Pending
Potassium Pending
Chloride Pending
Carbon Dioxide Pending
BUN Pending
Creatinine Pending
Glucose Pending
Calcium Pending
Vital Signs:
Vital Signs
Temp Pulse Resp BP Pulse Ox
97.8 F 70 16 176/94 95
05/13/25 07:29 05/13/25 07:29 05/13/25 07:29 05/13/25 07:29 05/13/25 07:29
I&O
05/12/25 05/13/25 05/14/25
06:59 06:59 06:59
Intake Total 900 / 900
Output Total 750 / 750 1350 / 1350
Balance -750 / -750 -450 / -450
[2025-05-13] MEDS: NOVOLOG FLEXPEN-LOW RESISTANCE SC (08:30)
[2025-05-13] MEDS: NOVOLOG FLEXPEN 2 UNITS SC (09:18)
[2025-05-13] MEDS: HEPARIN 5000 UNITS SC ×2 (09:20→22:20)
[2025-05-13] MEDS: MYFORTIC DELAYED REL. 540 MG PO ×2 (09:23→22:21)
[2025-05-13] MEDS: PROTONIX 40 MG PO (09:24)
[2025-05-13] MEDS: DELTASONE 50 MG PO (09:24)
[2025-05-13] MEDS: PROGRAF 1 MG PO (09:24)
[2025-05-13 09:27] LABS: Hematocrit 49.8 % (39.0-52.0); Hemoglobin 16.2 g/dL (13.0-18.0); Mean Corp Hgb Conc. 32.5 g/dL (33.0-37.0); Mean Corpuscular Volume 89.1 fL (80.0-94.0); Platelet Count 174 10^3/uL (130-400); Red Cell Dist. Width 13.2 % (11.5-14.5)
[2025-05-13] MEDS: DRISDOL (VITAMIN D2) 50000 UNITS PO (09:46)
[2025-05-13 09:53] LABS: Blood Urea Nitrogen 34 mg/dl (9-20); Calcium 9.2 mg/dl (8.4-10.2); Carbon Dioxide 24 mmol/L (22-30); Chloride 108 mmol/L (98-107); Glucose 123 mg/dl (70-99); Potassium 4.1 mmol/L (3.5-5.1); Sodium 136 mmol/L (135-145); eGFR > 60.00
[2025-05-13 11:29] LABS: Glucose - Point of Care 183 mg/dl (70-99)
[2025-05-13] MEDS: NOVOLOG FLEXPEN-LOW RESISTANCE 1 UNITS SC (14:02)
[2025-05-13] MEDS: NOVOLOG FLEXPEN 4 UNITS SC ×2 (14:03→18:36)
[2025-05-13] MEDS: NOVOLOG FLEXPEN SC (14:09)
--- NOTE | 2025-05-13 16:12 | CM ---
Patient seen at bedside on with present. Patient refusing to go to SNF, patient wants patient to go to outpatient therapy at . Physical therapy recommending Acute rehab. CM will request PM&R assessment to see if patient qualifies.
Uncertain if patient would agree to go to Acute rehab. CM will continue to follow for discharge planning needs.
Plan; home with outpatient therapy vs Acute rehab pending medical treatment plan
[2025-05-13 16:48] LABS: Glucose - Point of Care 274 mg/dl (70-99)
--- NOTE | 2025-05-13 18:19 | W.PN.NEURO.1 ---
Today's Communication / Plan
-
MRI brain w/o and w/ contrast
Neuro Assessment/Plan
Assessment
acute vestibular neuritis left side. slow drift to the left representing gain of function, and the right nystagmus representing a cortical correction the brain responding appropriately
right sided headache, retro orbital pain, resolved with OMT
Right sided ataxia, check brain MRI w/o and w/ contrast
s/p kidney transplant
Subjective/Objective
Subjective Data
Date of Service: May 13, 2025
dizziness no change
now with right sided headache and retroorbital pain
Now with right sided ataxia which patient states began the morning that he presented, however was not present on my NIHSS exam nor that of other providers
Objective Data
Vital Signs
Temp Pulse Resp BP Pulse Ox
36.7 C 82 16 121/80 98
05/13/25 15:17 05/13/25 15:17 05/13/25 15:17 05/13/25 15:17 05/13/25 15:17
Lab Results
05/13/25 07:16
05/13/25 07:16
Sodium 136 mmol/L (135-145) 05/13/25 07:16
Potassium 4.1 mmol/L (3.5-5.1) 05/13/25 07:16
BUN 34 mg/dl (9-20) H 05/13/25 07:16
Glucose 123 mg/dl (70-99) H 05/13/25 07:16
Calcium 9.2 mg/dl (8.4-10.2) 05/13/25 07:16
Patient Allergies
Penicillins Allergy (Verified 05/10/25 11:26)
Unknown
Physical Exam
-
right beating nystagmus persists
right sided ataxia on FTN and heel/king
[2025-05-13] MEDS: NOVOLOG FLEXPEN-LOW RESISTANCE 3 UNITS SC (18:36)
[2025-05-13 21:43] LABS: Glucose - Point of Care 284 mg/dl (70-99)
[2025-05-13] MEDS: LANTUS 0.14 UNITS SC (22:21)
[2025-05-13] MEDS: PROGRAF 0.5 MG PO (22:21)
[2025-05-13] MEDS: FLOMAX 0.4 MG PO (22:21)
[2025-05-13] MEDS: PRAVACHOL 40 MG PO (22:22)
[2025-05-14 03:28] VITALS: BP 159/86
[2025-05-14 07:02] LABS: Hematocrit 49.8 % (39.0-52.0); Hemoglobin 16.2 g/dL (13.0-18.0); Mean Corp Hgb Conc. 32.5 g/dL (33.0-37.0); Mean Corpuscular Volume 88.5 fL (80.0-94.0); Platelet Count 178 10^3/uL (130-400); Red Cell Dist. Width 13.1 % (11.5-14.5)
[2025-05-14 07:31] LABS: Blood Urea Nitrogen 34 mg/dl (9-20); Calcium 9.4 mg/dl (8.4-10.2); Carbon Dioxide 23 mmol/L (22-30); Chloride 107 mmol/L (98-107); Glucose 210 mg/dl (70-99); Potassium 4.5 mmol/L (3.5-5.1); Sodium 135 mmol/L (135-145); eGFR > 60.00
[2025-05-14 07:38] VITALS: BP 179/94
[2025-05-14] MEDS: MYFORTIC DELAYED REL. 540 MG PO ×2 (07:47→20:16)
[2025-05-14] MEDS: DELTASONE 50 MG PO (07:47)
[2025-05-14] MEDS: PROTONIX 40 MG PO (07:48)
[2025-05-14] MEDS: HEPARIN 5000 UNITS SC ×2 (07:48→20:16)
[2025-05-14] MEDS: PROGRAF 1 MG PO (07:48)
[2025-05-14 07:49] LABS: Glucose - Point of Care 170 mg/dl (70-99)
[2025-05-14] MEDS: NOVOLOG FLEXPEN-LOW RESISTANCE 1 UNITS SC (08:08)
[2025-05-14] MEDS: NOVOLOG FLEXPEN 4 UNITS SC ×2 (08:09→12:25)
[2025-05-14 11:42] VITALS: BP 140/80
[2025-05-14 12:03] LABS: Glucose - Point of Care 216 mg/dl (70-99)
[2025-05-14] MEDS: NOVOLOG FLEXPEN-LOW RESISTANCE 2 UNITS SC ×2 (12:24→17:29)
[2025-05-14 15:21] VITALS: BP 126/85
--- NOTE | 2025-05-14 16:58 | W.PN.HOSP.TC ---
Today's Communication/Plan
-
Cerebellar ischemic stroke with hemorrhagic conversion
Start Aspirin 81 mg daily and continue chemical DVT prophylaxis
Assessment / Plan
Assessment / Plan
Physical Exam
General: Well Developed, Well Nourished and No Apparent Distress
HEENT: NormoCephalic, Moist mucous membranes and Atraumatic
Respiratory: Clear to Auscultation Bilaterally
Cardiac: S1/S2 and Regular Rhythm
GI: Soft, Non Tender, Non Distended and Normal Bowel Sounds
Musculoskeletal: No Cyanosis and No Edema
Skin: Warm. Dry.
Neuro: AAOx3. Right sided ataxia, impaired finger to nose test and impaired heel to king test
Assessment/Plan
69-year-old male past medical history of ESRD status post renal transplant, type 2 diabetes mellitus, hypertension, hyperlipidemia, prostate cancer status post resection presented with disequilibrium on 05/10/25 morning. He woke up normally but
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 found patient on the floor later in the morning; he had slurred speech. He complained of nausea and some vomiting
on 05/10/25. No headache or numbness or tingling or focal weakness. No abdominal pain or cough or upper respiratory symptoms or urinary symptoms. He did not have any facial droop or focal neurological deficits or numbness or tingling. No prior
history of CVA. He does not smoke or drink alcohol.
CTA head and neck and MRI brain not necessary.
Patient continued to be hypothermic requiring Jackie hugger, although no clear explanation of this has been found so far.
#Acute disequilibrium, speech difficulty concerning for brainstem process/CVA -- suspected vestibular neuritis
#Right Sided Ataxia
- CT head shows no acute abnormality
- Neurology consulted -- they mentioned neuroimaging is unnecessary
- Neurology recommended prednisone for vestibular neuritis
- MRI Brain with and without contrast showed likely ischemic stroke with hemorrhagic conversion in the cerebellum (I discussed this with Dr. Corona Villarreal via [place] [employer] on 05/14/25)
- Appreciate Dr. Villarreal: start Aspirin 81 mg daily (but no DAPT given hemorrhagic conversion) and continue Heparin DVT prophylaxis
#Hematemesis reported overnight 05/10/25 to 05/11/25
-Protonix IV 40 mg BID transitioned to PO Protonix
-IV fluids
-Appreciate GI
# Hypertensive urgency - RESOLVED
- RESOLVED
- As needed hydralazine
# Hypothermia unclear etiology
- Leukocytosis on labs
- No hypoglycemia
- TSH of 1.16
- Urinalysis unremarkable
- Chest x-ray with no acute changes
- Blood cultures with no growth to date
- No clear signs of infection, hold off antibiotics
- Doubt adrenal insufficiency as patient was hypertensive; and sodium and potassium are normal
#History of ESRD s/p renal transplant
- Renal function normal however cautious to perform CTA given renal transplant
- Continue mycophenolate, tacrolimus, prednisone
Type 2 diabetes mellitus
- Continue Tresiba -- increase from 14 units to 16 units
- Increase premeal Insulin from 2 units to 4 units to 6 units today
- Diabetic diet
- Insulin sliding scale
Essential hypertension
Hyperlipidemia
- Continue statin
Prostate cancer s/p resection
- Continue tamsulosin
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
Full code
DVT prophylaxis�SCDs. Heparin subq.
Regular diet
Anticipated Discharge: 24 - 48 hours
Subjective/Interval History
-
Date of Service: May 14, 2025
Patient was seen and examined. He reported persistent dizziness, he was sitting in the chair comfortably.
Objective Data
-
Labs:
Laboratory Results
05/14/25
06:23
WBC 9.8
Hgb 16.2
Hct 49.8
Plt Count 178
Sodium 135
Potassium 4.5
Chloride 107
Carbon Dioxide 23
BUN 34 H
Creatinine 1.2
Glucose 210 H
Calcium 9.4
Vital Signs:
Vital Signs
Temp Pulse Resp BP Pulse Ox
98.1 F 74 16 126/85 100
05/14/25 15:21 05/14/25 15:21 05/14/25 15:21 05/14/25 15:21 05/14/25 15:21
I&O
05/13/25 05/14/25 05/15/25
06:59 06:59 06:59
Intake Total 900 / 900 480 / 480
Output Total 1350 / 1350 500 / 500
Balance -450 / -450 -20 / -20
[2025-05-14 17:23] LABS: Glucose - Point of Care 241 mg/dl (70-99)
[2025-05-14] MEDS: LOW STRENGTH ASPIRIN 81 MG PO (17:30)
[2025-05-14] MEDS: NOVOLOG FLEXPEN SC (17:39)
[2025-05-14 19:58] VITALS: BP 110/60
[2025-05-14 21:07] LABS: Glucose - Point of Care 388 mg/dl (70-99)
[2025-05-14] MEDS: FLOMAX 0.4 MG PO (21:22)
[2025-05-14] MEDS: PRAVACHOL 40 MG PO (21:22)
[2025-05-14] MEDS: LANTUS 0.16 UNITS SC (21:22)
[2025-05-14] MEDS: PROGRAF 0.5 MG PO (21:22)
--- NOTE | 2025-05-14 21:47 | W.PN.NEURO.1 ---
Today's Communication / Plan
-
ASA 81, DVT ppx heparin
carotid ultrasound then discharge
we discussed [facility] for acute rehab 15 hrs/wk - they just want to go home and outpatient tx
Neuro Assessment/Plan
Assessment
acute vestibular neuritis left side. slow drift to the left representing gain of function, and the right nystagmus representing a cortical correction the brain responding appropriately. when he looks towards the lesion, symptoms less, and when he
looks away from lesion they worsen as would be expected.
right sided headache, retro orbital pain, resolved with OMT
Right sided ataxia, MRI brain showing acute ischemic stroke right cerebellum, with a small amount of hemorrhagic conversion. by appearance etiology unclear, he does have multiple vascular risk factors.
check carotid ultrasound
discussed further afib screening with a 20% yield on a 3 year ILR - not interested though he will consider [employer]
ASA 81 and DVT ppx heparin
s/p kidney transplant
Subjective/Objective
Subjective Data
Date of Service: May 14, 2025
Objective Data
Vital Signs
Temp Pulse Resp BP Pulse Ox
36.8 C 75 16 110/60 98
05/14/25 19:58 05/14/25 19:58 05/14/25 19:58 05/14/25 19:58 05/14/25 19:58
Lab Results
05/14/25 06:23
05/14/25 06:23
Sodium 135 mmol/L (135-145) 05/14/25 06:23
Potassium 4.5 mmol/L (3.5-5.1) 05/14/25 06:23
BUN 34 mg/dl (9-20) H 05/14/25 06:23
Glucose 210 mg/dl (70-99) H 05/14/25 06:23
Calcium 9.4 mg/dl (8.4-10.2) 05/14/25 06:23
Patient Allergies
Penicillins Allergy (Verified 05/10/25 11:26)
Unknown
[2025-05-14 23:18] VITALS: BP 159/88
[2025-05-15 03:07] VITALS: BP 185/96
[2025-05-15] MEDS: APRESOLINE 5 MG IV (03:07)
[2025-05-15 06:08] LABS: Hematocrit 49.7 % (39.0-52.0); Hemoglobin 16.2 g/dL (13.0-18.0); Mean Corp Hgb Conc. 32.6 g/dL (33.0-37.0); Mean Corpuscular Volume 87.3 fL (80.0-94.0); Platelet Count 186 10^3/uL (130-400); Red Cell Dist. Width 13.1 % (11.5-14.5)
[2025-05-15 06:37] LABS: Blood Urea Nitrogen 33 mg/dl (9-20); Calcium 9.7 mg/dl (8.4-10.2); Carbon Dioxide 23 mmol/L (22-30); Chloride 109 mmol/L (98-107); Glucose 224 mg/dl (70-99); Potassium 4.5 mmol/L (3.5-5.1); Sodium 135 mmol/L (135-145); eGFR > 60.00
[2025-05-15 07:10] LABS: Glucose - Point of Care 172 mg/dl (70-99)
[2025-05-15] MEDS: MYFORTIC DELAYED REL. 540 MG PO ×2 (07:15→20:12)
[2025-05-15] MEDS: LOW STRENGTH ASPIRIN 81 MG PO (07:16)
[2025-05-15] MEDS: PROTONIX 40 MG PO (07:16)
[2025-05-15] MEDS: HEPARIN 5000 UNITS SC ×2 (07:16→20:12)
[2025-05-15] MEDS: PROGRAF 1 MG PO (07:16)
[2025-05-15] MEDS: NOVOLOG FLEXPEN-LOW RESISTANCE 1 UNITS SC (07:17)
[2025-05-15] MEDS: NOVOLOG FLEXPEN 6 UNITS SC ×3 (07:17→16:34)
--- NOTE | 2025-05-15 07:41 | W.PN.HOSP.TC ---
Today's Communication/Plan
-
PMR eval for acute rehab
see a/p
Assessment / Plan
Assessment / Plan
Physical Exam
General: Well Developed, Well Nourished and No Apparent Distress
HEENT: NormoCephalic, Moist mucous membranes and Atraumatic
Respiratory: Clear to Auscultation Bilaterally
Cardiac: S1/S2 and Regular Rhythm
GI: Soft, Non Tender, Non Distended and Normal Bowel Sounds
Musculoskeletal: No Cyanosis and No Edema
Skin: Warm. Dry.
Neuro: AAOx3. Right sided ataxia, impaired finger to nose test and impaired heel to king test
Assessment/Plan
69-year-old male past medical history of ESRD status post renal transplant, type 2 diabetes mellitus, hypertension, hyperlipidemia, prostate cancer status post resection presented with disequilibrium on 05/10/25 morning. He woke up normally but
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 found patient on the floor later in the morning; he had slurred speech. He complained of nausea and some vomiting
on 05/10/25. No headache or numbness or tingling or focal weakness. No abdominal pain or cough or upper respiratory symptoms or urinary symptoms. He did not have any facial droop or focal neurological deficits or numbness or tingling. No prior
history of CVA. He does not smoke or drink alcohol.
CTA head and neck and MRI brain not necessary.
Patient continued to be hypothermic requiring Jackie hugger, although no clear explanation of this has been found so far.
#Acute disequilibrium, speech difficulty concerning for brainstem process/CVA -- suspected vestibular neuritis
#Right Sided Ataxia
- CT head shows no acute abnormality
- MRI Brain with and without contrast showed likely ischemic stroke with hemorrhagic conversion in the cerebellum
- Neuro Consult appreciated Aspirin 81 mg daily (but no DAPT given hemorrhagic conversion) and continue Heparin DVT prophylaxis
- Carotid US appreciated no significant stenosis
-PT/OT appreciated Acute Rehab, patient and family now agreeable, previously refused in favor of home services, PMR eval pending
#Hematemesis reported overnight 05/10/25 to 05/11/25 since resolved
-Protonix IV 40 mg BID transitioned to PO Protonix
-GI eval appreciated outpt follow up recommended
# Hypertensive urgency - RESOLVED
- As needed hydralazine
# Hypothermia unclear etiology resolved
#History of ESRD s/p renal transplant
- Renal function normal however cautious to perform CTA given renal transplant
- Continue mycophenolate, tacrolimus, prednisone
Type 2 diabetes mellitus
- Continue Tresiba -- increase from 14 units to 16 units
- premeal Insulin 3 units
- Diabetic diet
- Insulin sliding scale
Essential hypertension
Hyperlipidemia
- Continue statin
Prostate cancer s/p resection
- Continue tamsulosin
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
Full code
DVT prophylaxis�SCDs. Heparin subq.
Regular diet
I spent a total of 40 minutes with the patient or on the floor. More than 50% of this time involved counseling and coordination of care.
Anticipated Discharge: Within 24 hours
Subjective/Interval History
-
Date of Service: May 15, 2025
No acute distress, reports overall feeling well. Denies new acute issues at this time.
Objective Data
-
Labs:
Laboratory Results
05/15/25
05:40
WBC 8.9
Hgb 16.2
Hct 49.7
Plt Count 186
Sodium 135
Potassium 4.5
Chloride 109 H
Carbon Dioxide 23
BUN 33 H
Creatinine 1.1
Glucose 224 H
Calcium 9.7
Vital Signs:
Vital Signs
Temp Pulse Resp BP Pulse Ox
97.8 F 65 14 185/96 97
05/15/25 03:07 05/15/25 03:07 05/15/25 03:07 05/15/25 03:07 05/15/25 03:07
I&O
05/14/25 05/15/25 05/16/25
06:59 06:59 06:59
Intake Total 480 / 480 1380 / 1380
Output Total 500 / 500 900 / 900
Balance -20 / -20 480 / 480
[2025-05-15 08:05] VITALS: BP 143/77
[2025-05-15 11:19] LABS: Glucose - Point of Care 80 mg/dl (70-99)
[2025-05-15 11:40] VITALS: BP 116/62
[2025-05-15] MEDS: NOVOLOG FLEXPEN-LOW RESISTANCE SC ×2 (11:58→16:33)
--- NOTE | 2025-05-15 14:27 | CM ---
Pt is reconsidering ARF transfer. Referral sent to [facility] for consideration. TT to Dr. Lau requesting physiatry consult.
[2025-05-15 14:28] VITALS: BP 85/53; PULSE 75; O2SAT 97
[2025-05-15 16:34] LABS: Glucose - Point of Care 90 mg/dl (70-99)
[2025-05-15 17:06] VITALS: BP 106/55
--- NOTE | 2025-05-15 18:38 | CON.MD ---
Consultation - Medical
-
Chief Complaint:�Stroke
�
History of Present Illness:�69-year-old right-handed male with PMH (as below) presented to [facility] on 05/10/2025 after waking up okay in the morning with an episode at 5:30 AM with disequilibrium and vertigo, he could not get up off the
bathroom floor. found him on the floor at 10 AM with slurred speech, nausea and vomiting and brought him to the hospital. Also noted with hypothermia requiring a Jackie hugger. CT of the head with no acute abnormality. Seen by neurology with
concern for left vestibular neuritis and started on prednisone 50 mg x 5 days. Seen by GI with continuing of PPI, hemoglobin stable. He had right-sided headache and retro-orbital pain resolved with OMT. Also with right sided ataxia with MRI of
the brain noting likely ischemic stroke with hemorrhagic conversion in the cerebellum. Started on aspirin 81 mg daily but not dual antiplatelet therapy given the hemorrhagic conversion. Patient not interested in having further screening for A-fib.
Vascular ultrasound negative for flow-limiting carotid stenosis.
�
Past Medical History:�ESRD status post renal transplant, type 2 diabetes, hypertension, hyperlipidemia, prostate cancer, cardiomyopathy, congestive heart failure
Procedure History:�Renal transplant, prostate cancer resection, left great toe amputation, left transmetatarsal amputation, left AV fistula, multiple eye surgeries for retina and lens replacements
Family History:�None pertinent
�
Social History:�
Functional Level Premorbidly:�Independent with all activities�
Functional Level Currently:�Supervision to min assist for simple ADLs. Recommended for acute rehab by OT. Supervision for transfers, ambulating 40 feet x 2 with min assist using rolling walker with very slow speed and ataxic gait. PT suggest
acute rehab.
�
Tobacco:�Denies�
Alcohol:�Denies�
Drug use:�Denies�
�
Lives with:�Spouse
24-hour assistance available:�Yes
Number of floors:�1
# steps to enter:�3 and ramp
Driving:�Yes
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
�
�
Allergies:�
Allergy/AdvReac Type Severity Reaction Status Date / Time
Penicillins Allergy Unknown Verified 05/10/25 11:26
�
Review of Systems:�
Constitutional: (x) abNormal _fatigue
Eye: (x) abNormal _vision problems with 2 different lenses and a scratched lens
Ear/Nose/Throat: (x) Normal _
Respiratory: (x) Normal _
Cardiovascular: (x) Normal _
Gastrointestinal: (x) Normal _
Genitourinary: (x) abNormal _Flomax with prostate cancer
Musculoskeletal: (x) Normal _
Integumentary: (x) Normal _
Neurologic: (x) abNormal _stroke with difficulty balancing, chronic diabetic neuropathy with muscle wasting
Psychiatric: (x) Normal _
Endocrine: (x) abNormal _type 2 diabetes with kidney, retina, neuropathy issues
Hematologic/Lymphatic: (x) Normal _
Allergic/Immunologic: (x) Normal _
�
Medications:�
Active Current Visit Medication List
Category Date Time Status
Aspirin Chewable [Low Strength Aspirin] Med 05/14/25 16:40 Active
81 mg PO DAILY
Dextrose 50%-Water [Dextrose 50% Syringe] Med 05/10/25 16:50 Active
12.5 grams IV [id number] PRN
Ergocalciferol [Drisdol (Vitamin D2)] Med 05/13/25 08:00 Active
50,000 units PO SA
Flush (0.9% Sodium Chloride) [Flush (Nss)] Med 05/10/25 17:00 Active
See Dose Instructions IV PER PROTOCOL
Glucagon [GlucaGen] Med 05/10/25 16:50 Active
1 mg IM PRN PRN
Heparin Med 05/11/25 20:00 Active
5,000 units SC Q12
HydrALAZINE [Apresoline] Med 05/10/25 15:07 Active
5 mg IV Q6HPRN PRN
Insulin Aspart Corrective Low [Novolog Flexpen-Low Med 05/10/25 16:50 Active
Resistance]
See Protocol SC AC
Insulin Aspart Pen [Novolog Flexpen] Med 05/14/25 17:01 Active
6 units SC AC
Insulin Glargine Lantus [Lantus] 16 units Med 05/14/25 22:00 Active
Subcutaneous Insulin Syringe [Syringe-Insulin] 0 unit
SC HS
Mycophenolic Acid Dr [Myfortic Delayed Rel.] Med 05/10/25 20:00 Active
540 mg PO BID
Ondansetron Injectable [Zofran] Med 05/11/25 04:01 Active
4 mg IV Q6HPRN PRN
Pantoprazole [Protonix] Med 05/13/25 08:00 Active
40 mg PO DAILY
Pravastatin Sodium [Pravachol] Med 05/10/25 22:00 Active
40 mg PO HS
Tacrolimus [Prograf] Med 05/10/25 22:00 Active
0.5 mg PO HS
Tacrolimus [Prograf] Med 05/11/25 08:00 Active
1 mg PO DAILY
Tamsulosin [Flomax] Med 05/10/25 22:00 Active
0.4 mg PO HS
�
Vitals:�
Temp Pulse Resp BP Pulse Ox
97.0 F 70 14 106/55 98
05/15/25 17:06 05/15/25 17:06 05/15/25 17:06 05/15/25 17:06 05/15/25 17:06
Actual Weight 85.871 kg
�
Physical Exam:�
General Appearance/Observation: Well-developed, well-nourished male in no apparent distress.�
Pain/Comfort Assessment: Denies�
Mood/Affect: Appropriate�
�
Integumentary/Operative Site:�
�� Pressure Ulcer Evaluation: absent over heels.�
�
Eyes: Conjunctiva/Lids: normal��� Pupils: pupils equal round and reactive to light
Ears/Nose/Throat: oral mucosa moist, throat clear.������������ Lips/Teeth/Gums: normal
Cardiovascular: Heart: regular, no murmur�
Pulses: dorsalis pedis 2+ bilaterally, left arm fistula with thrill.
Respiratory: Respiratory Effort/Chest Expansion: normal������ Auscultation: Clear to auscultation bilaterally
Gastrointestinal: abdomen not tender, no distension, normal abdominal bowel sounds
Genitourinary: No Titus�
Extremities:�Edema: None�Cyanosis: None�Trophic�changes: Yes bilateral shins to ankles
�-Significant muscle atrophy in the hand intrinsics and foot intrinsics
Neurology Exam:
Orientation: Alert, Oriented to self, Time, Place�
Memory: Intact
Comprehension: Intact
Two step command: Intact
Cranial Nerves:
�� CNII:�Pupillary light reflex: Intact���Visual Field: Impaired bilaterally particularly at end range of visual kiran
�� CN III, IV, : Extraocular muscles: Intact�
�� CN V:�Facial Sensation�at�Forehead: Intact,�Maxilla: Intact,�Mandible: Intact
�� CN VII:�Facial movement: Symmetric
�� CN VIII:�Hearing: Normal
�� CN IX/X:�Speech & swallow: Normal,�Position of Uvula: Midline
�� CN XI:�Shoulder shrug: Symmetric
�� CN XII:�Tongue protrusion: Midline
Sensory:
�� Light touch: Impaired in a stocking and glove distribution bilateral upper and lower extremities
�
Reflexes:
�� Babinski: Down going right
�� Clonus: None
�� Wen: Negative bilaterally�
Cerebellar: Dysmetria/Ataxia: Present on the right, absent on the left
Musculoskeletal: Motor: (Manual muscle scale 0-5)�
Muscle SA EF WE EE FF FA HF KE DF EHL PF
Right� 5 5 5 5 5 2 5 5 5 4 5
Left 5 5 5 5 5 2 5 5 5 - 5
�
Tone: Normal in all extremities�
Range of Motion: Passively within normal limits in all extremities�
�
Lab Results
Labs
WBC 8.9 10^3/uL (4.8-10.8) 05/15/25 05:40
RBC 5.69 10^6/uL (4.70-6.10) 05/15/25 05:40
Hgb 16.2 g/dL (13.0-18.0) 05/15/25 05:40
Hct 49.7 % (39.0-52.0) 05/15/25 05:40
MCV 87.3 fL (80.0-94.0) 05/15/25 05:40
MCH 28.5 pg (27.0-31.0) 05/15/25 05:40
MCHC 32.6 g/dL (33.0-37.0) L 05/15/25 05:40
RDW 13.1 % (11.5-14.5) 05/15/25 05:40
Plt Count 186 10^3/uL (130-400) 05/15/25 05:40
MPV 10.4 fL (7.4-10.4) 05/15/25 05:40
Abs Immat Gran (auto) 0.1 10^3/uL (0-0.05) H 05/11/25 12:45
Absolute Neuts (auto) 12.8 10^3/uL (1.4-6.5) H 05/11/25 12:45
Absolute Lymphs (auto) 0.8 10^3/uL (1.2-3.4) L 05/11/25 12:45
Absolute Monos (auto) 0.7 10^3/uL (0.1-0.6) H 05/11/25 12:45
Absolute Eos (auto) 0.0 10^3/uL (0-0.7) 05/11/25 12:45
Absolute Basos (auto) 0.0 10^3/uL (0-0.2) 05/11/25 12:45
Immature Gran % 0.5 % (0-0.5) 05/11/25 12:45
Neutrophils % 88.8 % (42.2-75.2) H 05/11/25 12:45
Lymphocytes % 5.6 % (20.5-51.1) L 05/11/25 12:45
Monocytes % 5.0 % (1.7-9.3) 05/11/25 12:45
Eosinophils % 0.0 % (0-6) 05/11/25 12:45
Basophils % 0.1 % (0-2) 05/11/25 12:45
Nucleated RBC % 0 % (-) 05/11/25 12:45
Sodium 135 mmol/L (135-145) 05/15/25 05:40
Potassium 4.5 mmol/L (3.5-5.1) 05/15/25 05:40
Chloride 109 mmol/L (98-107) H 05/15/25 05:40
Carbon Dioxide 23 mmol/L (22-30) 05/15/25 05:40
BUN 33 mg/dl (9-20) H 05/15/25 05:40
Creatinine 1.1 mg/dL (0.7-1.3) 05/15/25 05:40
Estimated Creat Clear Cancelled 05/10/25 11:05
eGFR > 60.00 05/15/25 05:40
Glucose 224 mg/dl (70-99) H 05/15/25 05:40
Hemoglobin A1c 8.0 % (4.0-5.6) H 05/11/25 04:02
Lactic Acid 1.0 mmol/L (0.7-2.0) 05/10/25 11:05
Lactic Acid Cancelled 05/10/25 11:05
Calcium 9.7 mg/dl (8.4-10.2) 05/15/25 05:40
Magnesium 2.0 mg/dl (1.6-2.3) 05/12/25 05:05
Total Bilirubin 1.2 mg/dl (0.2-1.3) 05/11/25 12:45
Direct Bilirubin 0.1 mg/dl (0.0-0.4) 05/11/25 12:45
AST 18 U/L (17-59) 05/11/25 12:45
ALT 17 U/L (0-50) 05/11/25 12:45
Alkaline Phosphatase 76 U/L (38-126) 05/11/25 12:45
Creatine Kinase 96 U/L (55-170) 05/10/25 11:31
Troponin I < 0.012 ng/ml 05/10/25 11:31
Total Protein 5.9 g/dl (6.3-8.2) L 05/11/25 12:45
Albumin 3.6 g/dl (3.5-5.0) 05/11/25 12:45
TSH (Reflex) 1.16 uIU/ml (0.47-4.68) 05/10/25 11:05
Urine Color Yellow 05/10/25 11:56
Urine Clarity Clear (Clear) 05/10/25 11:56
Urine pH 7.0 (5.0-9.0) 05/10/25 11:56
Ur Specific [place] 1.010 (<1.030) 05/10/25 11:56
Urine Ketones Negative (Negative) 05/10/25 11:56
Ur Occult Blood Reflex Negative (Negative) 05/10/25 11:56
Urine Nitrite (Reflex) Negative (Negative) 05/10/25 11:56
Urine Bilirubin Negative (Negative) 05/10/25 11:56
Urine Urobilinogen Negative (Neg - 1+) 05/10/25 11:56
Leukocyte Esterase Rfl Negative (Negative) 05/10/25 11:56
Urine RBC 0-2 /HPF (0-2) 05/10/25 11:56
Urine WBC (Reflex) 0-2 /HPF (0-5) 05/10/25 11:56
Ur Squamous Epith Cells 3-5 /LPF (Few) 05/10/25 11:56
Urine Bacteria (Reflex) Few (Negative) A 05/10/25 11:56
Urine Glucose 3+ (Negative) A 05/10/25 11:56
Urine Albumin (Reflex) 2+ (Neg - Trace) A 05/10/25 11:56
POC Glucose 90 mg/dl (70-99) 05/15/25 16:33
�
Diagnostic Results:�as per HPI�
�
Assessment
69-year-old male with PMH (ESRD status post renal transplant, type 2 diabetes, hypertension, hyperlipidemia, prostate cancer) with 05/10/2025 left vestibular neuritis and ischemic stroke with hemorrhagic conversion in the right superior cerebellum
resulting in ADL and ambulatory dysfunction.
�
Plan�
PM&R�PT/OT to increase independence with ADLs, improve balance, coordination, endurance, strength, mobility, community reintegration, decreased burden of care on others and family education.�
�
Right cerebellar CVA: Secondary prophylaxis with aspirin lifelong, statin, and blood pressure control (SBP less than 140 and diastolic less than 90 to participate with therapy with hemorrhagic conversion). Continue to monitor neurologic status.�
Diabetic retinopathy/lens replacement with scratched lens: Affects his vision when using both eyes, better when using individual eyes
Diabetic peripheral polyneuropathy secondary to diabetes: Has an intrinsic muscle atrophy in hands and feet.
Renal transplant: Tacrolimus 1 mg daily and 0.5 mg at night, mycophenolate. Check tacrolimus level. Notes getting it checked approximately every 3 months with his transplant ground support agent.
HTN: No standing medication
HLD: Statin
DM II: Insulin sliding scale, insulin aspart 6 units with meals and insulin glargine 16 units at night
CHF/cardiomyopathy: No recent EF on file, no beta-brent.
Psych: Psychology consult.� Monitor mood, medications as needed.�
Skin: monitor for pressure sores/rashes/lesions.�
Pain: acetaminophen as needed.�
Bowel: Monitor bowels, PRN bisacodyl.�
Bladder: Flomax 0.4 mg since prostate cancer surgery. Time void, PVRs, PRN straight cath.�
GI Prophylaxis: Pantoprazole�
DVT Prophylaxis: Mechanical and heparin
Pulmonary: Incentive spirometry
Safety: Continue to reinforce assistance with all transfers.�
Code Status:� Full code
Dispo�(date/plan/equipment needs): Home with family care.� Social history reviewed.�
Functional and Medical Goals:�Modified Independent with ADL�s, ambulation, transfers�
Discharge Destination:�Acute inpatient rehabilitation�
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 Reviewed
possible stroke etiologies, benefit of cardiac monitoring, stroke recovery, expectations for rehab.
Summary of recommendations:
-�Discharge Destination:�Acute inpatient rehabilitation
Right cerebellar CVA: Secondary prophylaxis with aspirin lifelong, statin, and blood pressure control (SBP less than 140 and diastolic less than 90 to participate with therapy with hemorrhagic conversion). Continue to monitor neurologic status.�
Renal transplant:Check tacrolimus level.
�
Thank you for allowing me to care for your patient. Please contact me with any questions or concerns.
Consultation
-
Date/Time Consultation Performed: 05/15/2025
Requesting Provider: Dr. Leonidas Lau
Performing Provider: Dr. Javid Wong
Reason for Consultation: Stroke
[2025-05-15 21:29] LABS: Glucose - Point of Care 82 mg/dl (70-99)
[2025-05-15] MEDS: FLOMAX 0.4 MG PO (21:57)
[2025-05-15] MEDS: PRAVACHOL 40 MG PO (21:57)
[2025-05-15] MEDS: LANTUS 0.16 UNITS SC (21:57)
[2025-05-15] MEDS: PROGRAF 0.5 MG PO (21:58)
[2025-05-15 23:15] VITALS: BP 158/96
[2025-05-16 06:00] VITALS: BMI 26.1
[2025-05-16 07:47] VITALS: BP 141/80
[2025-05-16 08:01] LABS: Glucose - Point of Care 61 mg/dl (70-99)
[2025-05-16 08:19] LABS: Glucose - Point of Care 62 mg/dl (70-99)
[2025-05-16] MEDS: MYFORTIC DELAYED REL. 540 MG PO (08:28)
[2025-05-16] MEDS: PROGRAF 1 MG PO (08:29)
[2025-05-16] MEDS: PROTONIX 40 MG PO (08:29)
[2025-05-16] MEDS: HEPARIN 5000 UNITS SC (08:29)
[2025-05-16] MEDS: LOW STRENGTH ASPIRIN 81 MG PO (08:30)
[2025-05-16] MEDS: NOVOLOG FLEXPEN SC ×3 (08:30→17:18)
[2025-05-16] MEDS: NOVOLOG FLEXPEN-LOW RESISTANCE SC ×2 (08:30→17:19)
[2025-05-16 08:43] LABS: Glucose - Point of Care 84 mg/dl (70-99)
[2025-05-16 09:20] LABS: Glucose - Point of Care 115 mg/dl (70-99)
--- NOTE | 2025-05-16 09:53 | W.PN.HOSP.TC ---
Today's Communication/Plan
-
discharge
Assessment / Plan
Assessment / Plan
Physical Exam
General: Well Developed, Well Nourished and No Apparent Distress
HEENT: NormoCephalic, Moist mucous membranes and Atraumatic
Respiratory: Clear to Auscultation Bilaterally
Cardiac: S1/S2 and Regular Rhythm
GI: Soft, Non Tender, Non Distended and Normal Bowel Sounds
Musculoskeletal: No Cyanosis and No Edema
Skin: Warm. Dry.
Neuro: AAOx3 Conversant Coherent Right sided ataxia, impaired finger to nose test and impaired heel to king test
Assessment/Plan
69-year-old male past medical history of ESRD status post renal transplant, type 2 diabetes mellitus, hypertension, hyperlipidemia, prostate cancer status post resection presented with disequilibrium on 05/10/25 morning. He woke up normally but
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 found patient on the floor later in the morning; he had slurred speech. He complained of nausea and some vomiting
on 05/10/25. No headache or numbness or tingling or focal weakness. No abdominal pain or cough or upper respiratory symptoms or urinary symptoms. He did not have any facial droop or focal neurological deficits or numbness or tingling. No prior
history of CVA. He does not smoke or drink alcohol.
CTA head and neck and MRI brain not necessary.
Patient continued to be hypothermic requiring Jackie hugger, although no clear explanation of this has been found so far.
#Acute disequilibrium, speech difficulty concerning for brainstem process/CVA -- suspected vestibular neuritis
#Right Sided Ataxia
- CT head shows no acute abnormality
- MRI Brain with and without contrast showed likely ischemic stroke with hemorrhagic conversion in the cerebellum
- Neuro Consult appreciated Aspirin 81 mg daily (but no DAPT given hemorrhagic conversion) and continue Heparin DVT prophylaxis
- Carotid US appreciated no significant stenosis
-PT/OT/PMR appreciated Acute Rehab, patient and family now agreeable, previously refused in favor of home services
#Hematemesis reported overnight 05/10/25 to 05/11/25 since resolved
-Protonix IV 40 mg BID transitioned to PO Protonix
-GI eval appreciated outpt follow up recommended
# Hypertensive urgency - RESOLVED
- As needed hydralazine
-low dose amlodipine w/ holding parameters
# Hypothermia unclear etiology resolved
#History of ESRD s/p renal transplant
- Renal function wnl
- Continue mycophenolate, tacrolimus, prednisone
Type 2 diabetes mellitus
- Continue Tresiba -- 14 units
- premeal Insulin 3 units
- Diabetic diet
- Insulin sliding scale
Hyperlipidemia
- Continue statin
Prostate cancer s/p resection
- Continue tamsulosin
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
Full code
DVT prophylaxis�SCDs. Heparin subq.
Regular diet
Medically stable for discharge Acute Rehab with outpatient follow up recommendations
Discussed with patient and patient's Chacha
Total Time Preparing Discharge __40 minutes including examination of the patient, summary of the hospital stay, instructions for continuing care to all relevant caregivers; and preparation of discharge records, prescriptions, and referral
forms if necessary.
Anticipated Discharge: Today
Subjective/Interval History
-
Date of Service: May 16, 2025
seen and examined at bedside in no acute distress sitting up comfortably in bed. Reports overall feeling well. Denies new acute issues. Looking forward to Acute Rehab.
Objective Data
-
Vital Signs:
Vital Signs
Temp Pulse Resp BP Pulse Ox
97.5 F 79 14 141/80 96
05/16/25 07:47 05/16/25 07:47 05/16/25 07:47 05/16/25 07:47 05/16/25 07:47
I&O
07/07/25 07/08/25 07/09/25
06:59 06:59 06:59
Intake Total 1380 / 1380 1380 / 1380
Output Total 900 / 900 1650 / 1650
Balance 480 / 480 -270 / -270
[2025-05-16 11:27] LABS: Glucose - Point of Care 170 mg/dl (70-99)
[2025-05-16] MEDS: NORVASC 2.5 MG PO (14:09)
[2025-05-16] MEDS: NOVOLOG FLEXPEN-LOW RESISTANCE 1 UNITS SC (14:09)
[2025-05-16] MEDS: NOVOLOG FLEXPEN 3 UNITS SC (14:10)
[2025-05-16 15:25] VITALS: BP 119/65
[2025-05-16 16:13] VITALS: BP 108/63; PULSE 77
[2025-05-16 17:00] LABS: Glucose - Point of Care 117 mg/dl (70-99)
--- NOTE | 2025-05-16 17:12 | W.DCSUMMARY ---
Discharge Summary
Discharge Data
Date of Admission: 05/10/25
Date of Discharge: 05/16/25
-
Pending Results: Yes
Additional Pending Results:
Tacrolimus level
Discharge Plan
-
Patient Disposition: Acute Rehab Facility
Discharge Diagnosis/Procedures: Right Sided Ataxia
ischemic stroke with hemorrhagic conversion cerebellum
Hypertension
History renal transplant
Type 2 diabetes mellitus
Hyperlipidemia
History Prostate cancer resection
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
Brief Reported Episode Hematemesis since spontaneously resolved
Condition: Fair
Diet: Diabetic, Carb Controlled
Activity: With assistance, As tolerated and With Walker
Driving Restrictions: Not until seen by your Dr
Bathing Restrictions: None
Other Services: PT and OT
Activity Restrictions/Additional Instructions:
Follow up with primary care provider in 1 week of discharge and, in 2-4 weeks of discharge, follow up with GI and Neurology.
Amlodipine started for hypertension.
Aspirin started for stroke.
Premeal Insulin Novolog 3 units prescribed for better control Diabetes.
Please take medications as prescribed/recommended and follow up with primary care provider and/or other healthcare provider involved in your care for refills and/or further adjustment to your medication regimen.
Referrals:
Corona Villarreal MD [Active, Neurology] - in two to four weeks
Sami Birmingham MD [Family Provider, Internal Medicine] - in one week
Estephania Nunn DO [Active, Gastroenterology] - in two to four weeks
Prescriptions:
New
amlodipine 2.5 mg Tablet
2.5 mg PO DAILY Qty: 30 0RF
aspirin 81 mg Tablet,Chewable
81 mg PO DAILY Qty: 30 0RF
insulin aspart U-100 100 unit/mL (3 mL) Insulin Pen
3 unit SC AC Qty: 15 0RF
Continued
pravastatin 40 mg Tablet
40 mg PO HS
prednisone 5 mg tablet
5 mg PO DAILY
tamsulosin 0.4 mg Capsule
0.4 mg PO HS
ergocalciferol (vitamin D2) 1,250 mcg (50,000 unit) Capsule
1,250 mcg PO SA
tacrolimus 0.5 mg capsule
1 mg PO DAILY
tacrolimus 0.5 mg capsule
0.5 mg PO HS
mycophenolate sodium 180 mg tablet,delayed release (DR/EC)
540 mg PO BID
insulin degludec [Tresiba FlexTouch U-100] 100 unit/mL (3 mL) Insulin Pen
14 unit SC HS
Discontinued
insulin aspart U-100 [Novolog FlexPen U-100 Insulin] 100 unit/mL (3 mL) Insulin Pen
2 - 6 sliding scale dose SC DIRECTED
Patient Comments:
05/10/2025, pt. does not know what their sliding scale is but they inject between 2-6 units before meals.
Discharge Orders:
Discharge Patient (As Directed); Ordered 05/16/25
Ordered By: Omer Armas
Discharge Date and Time
Print Language: THAI
== END 2025-05-16 18:06 | DRG 149 ==
LOC: 3 WEST ACU 13:47
PROVIDERS: Hospitalist; ADMITTING PHYSICIAN Hospitalist; ATTENDING PHYSICIAN Internal Medicine; CONSULT PHYSICIAN Physical Medicine & Rehabilitation; EMERGENCY PHYSICIAN Emergency Medicine; FAMILY PHYSICIAN Internal Medicine; OTHER PHYSICIAN Internal Medicine; OTHER PHYSICIAN Psychiatry & Neurology Clinical Neurophysiology
DX: H81.22 Vestibular neuronitis, left ear (principal); I61.9 Nontraumatic intracerebral hemorrhage, unspecified; I63.9 Cerebral infarction, unspecified; Z94.0 Kidney transplant status; K92.0 Hematemesis; D84.821 Immunodeficiency due to drugs; H93.3X2 Disorders of left acoustic nerve; R27.0 Ataxia, unspecified; Z85.46 Personal history of malignant neoplasm of prostate; I50.9 Heart failure, unspecified; Z64.0 Problems related to unwanted pregnancy; I11.0 Hypertensive heart disease with heart failure; E11.319 Type 2 diabetes mellitus with unspecified diabetic retinopathy without macular edema; E11.42 Type 2 diabetes mellitus with diabetic polyneuropathy; Z88.0 Allergy status to penicillin; D64.9 Anemia, unspecified; E78.00 Pure hypercholesterolemia, unspecified; H55.00 Unspecified nystagmus; I16.0 Hypertensive urgency; R29.700 NIHSS score 0; Z79.4 Long term (current) use of insulin; Z79.60 Long term (current) use of unspecified immunomodulators and immunosuppressants; Z79.899 Other long term (current) drug therapy; Z99.2 Dependence on renal dialysis
CPT/HCPCS: 70450; 70553; 71045; 80048; 80053; 80197; 81003; 81015; 82248; 82550; 82962; 83036; 83605; 83735; 84443; 84484; 85025; 85027; 87040; 87070; 93005; 93880; 96374; 96375; 96376; 97112; 97116; 97163; 97167; 97530; 97535; 99291; A9575